=== PATIENT | male | born 1980 | race African-American/Black ===

== ENCOUNTER 2017-07-24 15:30 | Emergency (ER) | payer OTHER ==
[~2017-07-24] VITALS: Ht 182.9 cm; Wt 72.6 kg
[~2017-07-24 15:30] MED LIST: BACTRIM DS TAB1 EACH PO; NORFLEX100 MG PO; TRAMADOL 50 MG50 MG PO
[2017-07-24 18:24] LABS: ABSOLUTE NEUTROPHILS 4.5 thou/uL (1.4-8.2); BASOPHILS 1.1 % (0.0-2.0); HEMATOCRIT 34.3 % (42.0-52.0); HEMOGLOBIN 11.4 gm/dL (14.0-18.0); LYMPHOCYTES 40.4 % (24.0-44.0); MCH 29.1 pg (26.0-34.0); MCHC 33.3 g/dL (28.0-37.0); MCV 87.3 fL (80.0-100.0); MONOCYTES 5.8 % (1.0-8.0); PLATELET COUNT 278 thou/uL (150-400); POLYS 49.7 % (36.0-66.0); RBC 3.93 mil/uL (4.50-6.00); RDW 13.4 % (10.5-14.5)
[2017-07-24 18:33] LABS: CALCIUM 8.6 mg/dL (8.5-10.1); CREATININE 1.1 mg/dL (0.7-1.3); POTASSIUM 3.8 mmol/L (3.5-5.1)
[2017-07-24] MEDS ORDERED: DOXYCYCLINE 10100 MG PO (21:06)
[2017-07-24] MEDS ORDERED: KEFLEX500 M1 PO (21:06)
== END 2017-07-24 21:54 | disposition home or self-care (01) ==
LOC: ER 15:30
PROVIDERS: Emergency Medicine
DX: L03.115 Cellulitis of right lower limb (principal)